=== PATIENT | male | born 1955 ===

== ENCOUNTER 2019-01-21 05:35 | Day surgery (SDC) | payer OTHER ==
[~2019-01-21 05:35] MED LIST: BISOPROLOL FUMA10 MG PO; COZAAR100 MG PO
[2019-01-21] MEDS ORDERED: CIPRO500 MG PO (11:18)
[2019-01-21] MEDS ORDERED: PERCOCET 5-3251 EACH PO (11:18)
[2019-01-21] MEDS ORDERED: POLY119PG PO (11:19)
[2019-01-21] MEDS ORDERED: SURFAK240 M1 PO (11:19)
== END 2019-01-21 14:20 | disposition home or self-care (01) ==
LOC: CIR.AMB 05:35
DX: K80.10 Calculus of gallbladder with chronic cholecystitis without obstruction (principal); K42.0 Umbilical hernia with obstruction, without gangrene; K43.6 Other and unspecified ventral hernia with obstruction, without gangrene